=== PATIENT | female | born 1985 | race Hispanic/Latino ===

== ENCOUNTER 2020-06-26 20:14 | Emergency (ER) | payer OTHER ==
[~2020-06-26] VITALS: Ht 162.6 cm; Wt 118.4 kg
--- NOTE | 2020-06-26 20:41 | Emergency Department Note ---
History of Present Illnes History of Present Illness Chief Complaint: Genitourinary History of Present Illness This is a 35 year old female urinary retention hief Complaint Comment PT ST ATED SHE HAD A BABY ON 06/14/20 AND WAS UNABLE TO URINATE SO THEY PLACED A SEXTON, PT HAD THE SEXTON REMOVED TODAY AT 1300 AND WAS TOLD IF SHE STILL COULD NOT URINATE TO RETURN TO ER. PT STATED SHE HAS TRIED ALL DAY AND HAS BEEN UNSUCCESFUL. PT COMPLAINS OF PAIN AND FULLNESS, Onset (how long ago): day(s) (2) Location: suprapubic Quality: dull Radiation: Reports non-radiation Severity: moderate Onset quality: gradual Duration (how long): day(s) (2) Timing of current episode: constant Progression: worsening Chronicity: new Context: Denies recent illness, Denies recent surgery, Denies recent immobilization, Denies recent travel, Denies trauma/injury, Denies new medications, Denies hx of DVT/PE, Denies non-compliance w/ medications, Denies other Relieving factors: none Exacerbating factors: none Associated symptoms: Reports denies other symptoms Treatments prior to arrival: none Past Medical/Family History Physician Review I have reviewed the patient's past medical and family history. Any updates have been documented here. Past Medical History Past Medical History: None Past Surgical History: None Social History Smoking Cessation: Never Smoker Alcohol Use: None Review of Systems Review of Systems Constitutional: Reports no symptoms EENTM: Reports no symptoms Cardiovascular: Reports no symptoms Respiratory: Reports no symptoms Gastrointestinal: Reports no symptoms Genitourinary: Reports as per HPI Musculoskeletal: Reports no symptoms Integumentary: Reports no symptoms Neurological: Reports no symptoms Psychological: Reports no symptoms Endocrine: Reports no symptoms Hematological/Lymphatic: Reports no symptoms Physical Exam Related Data Allergies: Coded Allergies: No Known Allergies (Unverified , 06/26/20) Vital signs reviewed: Yes Physical Exam CONSTITUTIONAL Constitutional: Present well-developed, Present well-nourished HENT HENT: Present normocephalic, Present atraumatic, Present oropharynx clear/moist, Present nose normal HENT L/R: Present left ext ear normal, Present right ext ear normal EYES Eyes: Reports PERRL, Reports conjunctivae normal NECK Neck: Present ROM normal PULMONARY Pulmonary: Present effort normal, Present breath sounds normal CARDIOVASCULAR Cardiovascular: Present regular rhythm, Present heart sounds normal, Present capillary refill normal, Present normal rate GASTROINTESTINAL Abdominal: Present soft, Present nontender, Present bowel sounds normal GENITOURINARY Genitourinary: Present exam deferred SKIN Skin: Present warm, Present dry MUSCULOSKELETAL Musculoskeletal: Present ROM normal NEUROLOGICAL Neurological: Present alert, Present oriented x 3, Present no gross motor or sensory deficits PSYCHOLOGICAL Psychological: Present mood/affect normal, Present judgement normal Assessment & Plan Medical Decision Making MDM urinary retention uti Reassessment Reassessment better, Sexton catheter placed , 450 cc urine out Assessment & Plan Final Impression: (1) Acute urinary retention Depart Disposition: HOME, SELF-CARE DEN MCCALLUM MD Jun 26, 2020 20:41
--- NOTE | 2020-06-26 20:41 | NUR ---
16F SEXTON CATH PLACED IN PT, PT TOLERATED WELL, BAG HUNG BELOW BLADDER, STERILE TECHNIQUE USED, 500ML IN BAG AND DRAINING. PT STATED PAIN RESOLVED.
--- OUTSIDE RECORDS SUMMARY | 2020-06-26 23:23 | XMS REPORT | Continuity of Care Document ---
Author Author [facility] Organization [facility] Address [address] [place] [address] Phone Unavailable Care Team Providers Care Oven Press Tender Name Role Phone Unavailable Unavailable Payers Payer Name Policy Type Policy Number Effective Date Expiration Date S ource Problems This patient has no known problems. Allergies, Adverse Reactions, Alerts Allergy Name Allergy Type Status Severity Reaction(s) Onset Date Inacti ve Date Treating Clinician Comments Source No Known Allergies DA Active U 2020-06-13 00:00:00 [facility] Medications This patient has no known medications. Procedures This patient has no known procedures. Results Test Description Test Time Test Comments Results Result Comments Source COMPREHENSIVE METABOLIC PANEL 2020-06-19 01:17:00 Test Item SODIUM (test code = NA) 139 mmol/L 135-145 N POTASSIUM (test code = K) 3.7 mmol/L 3.6-5.0 N CHLORIDE (test code = CL) 103 mmol/L 101-111 N CARBON DIOXIDE (test code = CO2) 27 mmol/L 21-31 N GLUCOSE (test code = GLU) 100 mg/dl 70-100 N BLOOD UREA NITROGEN (test code = BUN) 11 mg/dl 6-20 N GLOMERULAR FILTRATION RATE (test code = GFR) >=60 max estimate >60 The estimated glomerular filtration rate is computed usingpatient race, age (>18), sex, and serum creatinine. If anyof the needed data elements are missing the Laboratory cannot compute an estimation of the glomerular filtration rate. CREATININE (test code = CREAT) 0.52 mg/dL 0.44-1.03 N TOTAL PROTEIN (test code = PROT) 5.9 g/dL 6.7-8.2 L ALBUMIN (test code = ALB) 2.5 g/dL 3.2-5.5 L CALCIUM (test code = CA) 8.6 mg/dL 8.5-10.5 N BILIRUBIN TOTAL (test code = BILT) 0.50 mg/dL 0.2-1.3 N SGOT/AST (test code = AST) 40 U/L 10-42 N SGPT/ALT (test code = ALT) 43 U/L 10-60 N ALKALINE PHOSPHATASE (test code = ALKP) 110 U/L 42-121 N COMPREHENSIVE METABOLIC [id number] 01:13:00* Test Item Value Reference Range Interpretation Comments SODIUM (test code = NA) 139 mmol/L 135-145 N POTASSIUM (test code = K) 3.7 mmol/L 3.6-5.0 N CHLORIDE (test code = CL) 103 mmol/L 101-111 N CARBON DIOXIDE (test code = CO2) 27 mmol/L 21-31 N GLUCOSE (test code = GLU) 100 mg/dl 70-100 N BLOOD UREA NITROGEN (test code = BUN) 11 mg/dl 6-20 N GLOMERULAR FILTRATION RATE (test code = GFR) >=60 max estimate >60 The estimated glomerular filtration rate is computed usingpatient race, age (>18), sex, and serum creatinine. If anyof the needed data elements are missing the Laboratory cannot compute an estimation of the glomerular filtration rate. CREATININE (test code = CREAT) 0.52 mg/dL 0.44-1.03 N TOTAL PROTEIN (test code = PROT) g/dL 6.7-8.2 ALBUMIN (test code = ALB) g/dL 3.2-5.5 CALCIUM (test code = CA) 8.6 mg/dL 8.5-10.5 N BILIRUBIN TOTAL (test code = BILT) mg/dL 0.2-1.3 SGOT/AST (test code = AST) U/L 10-42 SGPT/ALT (test code = ALT) U/L 10-60 ALKALINE PHOSPHATASE (test code = ALKP) U/L 42-121 CBC W/AUTO [id number] 00:59:00* Test Item Value Reference Range Interpretation Comments WHITE BLOOD CELL (test code = WBC) 13.1 x10 3/uL 3.2-11.5 H RED BLOOD CELL (test code = RBC) 4.15 x10(6)/m 3.70-5.10 N HEMOGLOBIN (test code = HGB) 11.4 g/dL 12.0-15.0 L HEMATOCRIT (test code = HCT) 36.0 % 35.7-44.8 N MEAN CELL VOLUME (test code = MCV) 87 fL 80-100 N MEAN CELL HGB (test code = MCH) 27.5 pg 26.2-33.8 N MEAN CELL HGB CONCENTRATION (test code = MCHC) 31.7 g/dL 30.0-34 .0 N RED CELL DISTRIBUTION WIDTH (test code = RDW) 15.9 % 11.3-14. 5 H PLATELET COUNT (test code = PLT) 382 x10 3/uL 130-408 N MEAN PLATELET VOLUME (test code = MPV) 9.6 fL 8.6-12.6 N NEUTROPHIL % (test code = NT%) 74.4 % 40.0-70.0 H IMMATURE GRANULOCYTE % (test code = IG%) 0.7 % 0.0-2.0 N LYMPHOCYTE % (test code = LY%) 16.7 % 20-40 L MONOCYTE % (test code = MO%) 5.7 % 1-10 N EOSINOPHIL % (test code = EO%) 2.1 % 0.0-5.0 N BASOPHIL % (test code = BA%) 0.4 % 0.0-1.0 N NUCLEATED RBC % (test code = NRBC%) 0.0 % 0.0-0.9 N NEUTROPHIL # (test code = NT#) 9.8 x10 3/uL 1.6-7.2 H LYMPHOCYTE # (test code = LY#) 2.19 x10 3/uL 1.1-2.7 N MONOCYTE # (test code = MO#) 0.8 x10 3/uL 0.3-0.8 N EOSINOPHIL # (test code = EO#) 0.3 x10 3/uL 0.0-0.5 N BASOPHIL # (test code = BA#) 0.1 x10 3/uL 0.0-0.1 N UR HCG [id number] 23:40:00* Test Item Value Reference Range Interpretation Comments UR HCG QUAL (test code = HCGQLU) POSITIVE NEGATIVE URINALYSIS [id number] 23:36:00* Test Item Value Reference Range Interpretation Comments UA COLOR (test code = COLU) YELLOW YELLOW UA APPEARANCE (test code = APPU) Cloudy CLEAR UA GLUCOSE DIPSTICK (test code = DGLUU) NEGATIVE NEGATIVE UA BILIRUBIN DIPSTICK (test code = BILU) NEGATIVE NEGATIVE UA KETONE DIPSTICK (test code = KETU) NEGATIVE NEGATIVE UA SPECIFIC GRAVITY (test code = SGU) 1.012 1.001-1.030 UA BLOOD DIPSTICK (test code = BEVERLY) 2+ NEGATIVE UA PH DIPSTICK (test code = ARELY) 7.0 5.0-9.0 UA PROTEIN DIPSTICK (test code = PROU) NEGATIVE NEGATIVE UA UROBILINOGEN DIPSTICK (test code = URO) 2.0 <=1.0 A UA NITRITE DIPSTICK (test code = KENNA) NEGATIVE NEGATIVE UA ASCORBIC ACID DIPSTICK (test code = AAU) NEGATIVE UA LEUKOCYTE ESTERASE DIPSTICK (test code = LEUU) 3+ NEGA TIVE A UA WBC (test code = WBCU) 51-100 /HPF 0-5 UA RBC (test code = RBCU) 51-100 /HPF 0-5 UA EPITHELIAL CELLS (test code = EPIU) RARE /LPF NONE-FEW UA BACTERIA (test code = BACU) 4+ /HPF NONE SEEN A UA MUCUS (test code = MUCU) 1+ /LPF NONE SEEN CBC W/AUTO [id number] 07:02:00* Test Item Value Reference Range Interpretation Comments WHITE BLOOD CELL (test code = WBC) 15.7 x10 3/uL 3.2-11.5 H RED BLOOD CELL (test code = RBC) 4.08 x10(6)/m 3.70-5.10 N HEMOGLOBIN (test code = HGB) 11.1 g/dL 12.0-15.0 L HEMATOCRIT (test code = HCT) 35.8 % 35.7-44.8 N MEAN CELL VOLUME (test code = MCV) 88 fL 80-100 MEAN CELL HGB (test code = MCH) 27.2 pg 26.2-33.8 N MEAN CELL HGB CONCENTRATION (test code = MCHC) 31.0 g/dL 30.0-34 .0 N RED CELL DISTRIBUTION WIDTH (test code = RDW) 16.3 % 11.3-14. 5 H PLATELET COUNT (test code = PLT) 302 x10 3/uL 130-408 N MEAN PLATELET VOLUME (test code = MPV) 10.3 fL 8.6-12.6 N NEUTROPHIL % (test code = NT%) 73.1 % 40.0-70.0 H IMMATURE GRANULOCYTE % (test code = IG%) 0.6 % 0.0-2.0 N LYMPHOCYTE % (test code = LY%) 17.9 % 20-40 L MONOCYTE % (test code = MO%) 6.8 % 1-10 N EOSINOPHIL % (test code = EO%) 1.2 % 0.0-5.0 N BASOPHIL % (test code = BA%) 0.4 % 0.0-1.0 N NUCLEATED RBC % (test code = NRBC%) 0.0 % 0.0-0.9 N NEUTROPHIL # (test code = NT#) 11.5 x10 3/uL 1.6-7.2 H LYMPHOCYTE # (test code = LY#) 2.81 x10 3/uL 1.1-2.7 H MONOCYTE # (test code = MO#) 1.1 x10 3/uL 0.3-0.8 H EOSINOPHIL # (test code = EO#) 0.2 x10 3/uL 0.0-0.5 N BASOPHIL # (test code = BA#) 0.1 x10 3/uL 0.0-0.1 N RAPID PLASMA [id number] 10:54:00* Test Item Value Reference Range Interpretation Comments RAPID PLASMA REAGIN (test code = RPR) NEGATIVE NEGATIVE AG HEPATITIS B [id number] 17:49:00* Test Item Value Reference Range Interpretation Comments AG HEPATITIS B SURFACE (test code = HBSAG) NEGATIVE NEGATIVE AB HIV 1 17:49:00* Test Item Value Reference Range Interpretation Comments AB HIV 1 2 (test code = [id number]) NEGATIVE NEGATIVE CBC W/AUTO [id number] 15:31:00* Test Item Value Reference Range Interpretation Comments WHITE BLOOD CELL (test code = WBC) 7.0 x10 3/uL 3.2-11.5 N RED BLOOD CELL (test code = RBC) 4.88 x10(6)/m 3.70-5.10 N HEMOGLOBIN (test code = HGB) 14.9 g/dL 12.0-15.0 N HEMATOCRIT (test code = HCT) 45.6 % 35.7-44.8 H MEAN CELL VOLUME (test code = MCV) 93 fL 80-100 N MEAN CELL HGB (test code = MCH) 30.5 pg 26.2-33.8 N MEAN CELL HGB CONCENTRATION (test code = MCHC) 32.7 g/dL 30.0-34 .0 N RED CELL DISTRIBUTION WIDTH (test code = RDW) 12.9 % 11.3-14. 5 N PLATELET COUNT (test code = PLT) 113 x10 3/uL 130-408 L MEAN PLATELET VOLUME (test code = MPV) 10.4 fL 8.6-12.6 N NEUTROPHIL % (test code = NT%) 62.9 % 40.0-70.0 N IMMATURE GRANULOCYTE % (test code = IG%) 0.4 % 0.0-2.0 N LYMPHOCYTE % (test code = LY%) 29.0 % 20-40 N MONOCYTE % (test code = MO%) 5.7 % 1-10 N EOSINOPHIL % (test code = EO%) 1.7 % 0.0-5.0 N BASOPHIL % (test code = BA%) 0.3 % 0.0-1.0 N NUCLEATED RBC % (test code = NRBC%) 0.0 % 0.0-0.9 N NEUTROPHIL # (test code = NT#) 4.4 x10 3/uL 1.6-7.2 N LYMPHOCYTE # (test code = LY#) 2.04 x10 3/uL 1.1-2.7 N MONOCYTE # (test code = MO#) 0.4 x10 3/uL 0.3-0.8 N EOSINOPHIL # (test code = EO#) 0.1 x10 3/uL 0.0-0.5 N BASOPHIL # (test code = BA#) 0.0 x10 3/uL 0.0-0.1 N CBC W/AUTO [id number] 15:19:00* Test Item Value Reference Range Interpretation Comments WHITE BLOOD CELL (test code = WBC) 7.0 x10 3/uL 3.2-11.5 N RED BLOOD CELL (test code = RBC) 4.88 x10(6)/m 3.70-5.10 N HEMOGLOBIN (test code = HGB) 14.9 g/dL 12.0-15.0 N HEMATOCRIT (test code = HCT) 45.6 % 35.7-44.8 H MEAN CELL VOLUME (test code = MCV) 93 fL 80-100 N MEAN CELL HGB (test code = MCH) 30.5 pg 26.2-33.8 N MEAN CELL HGB CONCENTRATION (test code = MCHC) 32.7 g/dL 30.0-34 .0 N RED CELL DISTRIBUTION WIDTH (test code = RDW) % 11.3-14. 5 PLATELET COUNT (test code = PLT) x10 3/uL 130-408 MEAN PLATELET VOLUME (test code = MPV) 10.4 fL 8.6-12.6 N NEUTROPHIL % (test code = NT%) % 40.0-70.0 LYMPHOCYTE % (test code = LY%) % 20-40 MONOCYTE % (test code = MO%) % 1-10 EOSINOPHIL % (test code = EO%) % 0.0-5.0 BASOPHIL % (test code = BA%) % 0.0-1.0 NUCLEATED RBC % (test code = NRBC%) % 0.0-0.9 NEUTROPHIL # (test code = NT#) x10 3/uL 1.6-7.2 LYMPHOCYTE # (test code = LY#) x10 3/uL 1.1-2.7 MONOCYTE # (test code = MO#) x10 3/uL 0.3-0.8 EOSINOPHIL # (test code = EO#) x10 3/uL 0.0-0.5 COVID 19 Asymptomatic IH [id number] 15:17:00* Test Item Value Reference Range Interpretation Comments COVID 19 Asymptomatic IH AG (test code = COVNONPUIAG) Negative Negative Negative results should be treated as presumptive andconfirmed with a molecular assay, if necessary for patientmanagement. Negative results do not rule out COVID-19 andshould not be used as the sole basis for treatment orpatient management decisions, including infection controldecisions. Negative results should be considered in thecontext of a patient's recent exposures, history and thepresence of clnical signs and symptoms consistent withCOVID-19.
== END 2020-06-26 20:55 | disposition home or self-care (01) ==
LOC: FSED 20:50
DX: R33.9 Retention of urine, unspecified (principal)
CPT/HCPCS: 51700; 99283